=== PATIENT | female | born 2000 | race Caucasian/White ===

== ENCOUNTER 2022-02-02 12:23 | Inpatient (IN) | payer BC ==
[~2022-02-02 12:23] MED LIST: Bupivacaine/Epinephrine 0.25% 30 ML VIAL ONE
[2022-02-02] MEDS ORDERED: Misoprostol 200 MCG TAB PR PRN (12:31)
[2022-02-02] MEDS ORDERED: Carboprost 250 MCG/ML AMP IM PRN (12:31)
[2022-02-02] MEDS ORDERED: HYDROcodone/Acetaminophen 5/325 mg Tablet PO PRN ×2 (12:31)
[2022-02-02] MEDS ORDERED: Lidocaine 1% (PF) 30 ML VIAL SC PRN (12:31)
[2022-02-02] MEDS ORDERED: hydrALAZINE 20 MG/ML VIAL SLOW IVP PRN (12:31)
[2022-02-02] MEDS ORDERED: Diphenoxylate HCl/Atropine Tablet PO PRN (12:31)
[2022-02-02] MEDS ORDERED: Methylergonovine 0.2 MG/ML VIAL IM PRN (12:31)
[2022-02-02] MEDS ORDERED: Promethazine HCl 25 MG/ML VIAL IM PRN (12:31)
[2022-02-02] MEDS ORDERED: Acetaminophen 500 MG TAB PO PRN (12:31)
[2022-02-02] MEDS ORDERED: Ibuprofen 800 MG TAB PO PRN (12:31)
[2022-02-02] MEDS ORDERED: NS w/ Oxytocin 30 units 500 ML IV SCH ×2 (12:45)
[2022-02-02 12:57] VITALS: BMI 34.9
[2022-02-02] MEDS: Misoprostol 100 MCG TAB PO SCH ×4 (14:01→23:34)
[2022-02-02] MEDS: Lactated Ringer's 1,000 ML IV SCH (14:01)
[2022-02-02 15:02] LABS: Hep B Surf Ag Non-Reactive S/CO (NonReactive); Syphilis Antibody Nonreactive (Nonreactive); Syphilis Antibody Index 0.05 S/CO (<1.00 Non-Reactive)
[2022-02-02 15:05] LABS: HBSAg Index 0.15 S/CO (0-0.99)
[2022-02-02 15:12] LABS: Hemoglobin 12.5 g/dL (12.0-15.5); Mean Corpuscular HGB CONC 34.6 g/dL (32.0-36.0); Mean Corpuscular Hemoglobin 29.2 pg (27.0-33.0); Mean Corpuscular Volume 84.3 fl (81.6-98.3); Mean Platelet Volume 10.7 fl (7.4-10.4); Platelet Count 184 10x3/uL (150-450); RBC Distribution Width 13.6 % (11.5-14.5); Red Blood Cell (RBC) Count 4.28 10x6/uL (3.90-5.03); White Blood Cell (WBC) Count 10.3 10x3/uL (3.5-10.5)
[2022-02-02 16:25] LABS: SARS-CoV-2 NAA Rapid Test Not Detected (NotDetected)
[2022-02-02] MEDS: Ondansetron PF 4 MG/2 ML Vial IVP PRN (23:43)
[2022-02-02] MEDS: Butorphanol Tartrate 1 MG/ML VIAL SLOW IVP PRN (23:44)
[2022-02-03] MEDS: Butorphanol Tartrate 1 MG/ML VIAL SLOW IVP PRN ×2 (03:05→07:33)
[2022-02-03] MEDS ORDERED: Dinoprostone 10 MG Suppository VAG SCH (04:45)
[2022-02-03] MEDS: Ondansetron PF 4 MG/2 ML Vial IVP PRN (07:35)
[2022-02-03] MEDS: Lactated Ringer's 1,000 ML IV SCH ×2 (09:30→11:45)
[2022-02-03] MEDS ORDERED: Fentanyl 2 mcg/Bup 0.1% Cadd 100 ML ONE (10:12)
[2022-02-03] MEDS: Fentanyl 2 mcg/Bupivacaine 0.1% Cassette 100 ML EPIDURAL SCH ×2 (10:20→18:56)
[2022-02-03] MEDS ORDERED: Lactated Ringer's 500 ML IV PRN (10:22)
[2022-02-03] MEDS ORDERED: Ondansetron PF 4 MG/2 ML Vial IVP PRN (10:22)
[2022-02-03] MEDS ORDERED: Naloxone HCl 0.4 mg/ml Vial IVP PRN ×2 (10:22)
[2022-02-03] MEDS ORDERED: Promethazine HCl 25 MG/ML VIAL IM PRN (10:22)
[2022-02-03] MEDS ORDERED: ePHEDrine Sulfate 50 MG/10 ML VIAL SLOW IVP PRN (10:22)
[2022-02-03] MEDS ORDERED: diphenhydrAMINE 50 MG/ML VIAL IVP PRN (10:22)
[2022-02-03] MEDS ORDERED: Moisturizing Cream (Eucerin) 113 GM JAR TOP PRN (10:22)
[2022-02-03] MEDS ORDERED: Acetaminophen 325 MG TAB PO PRN (10:22)
[2022-02-03] MEDS ORDERED: Communication Order-Pharmacy FS SCH (10:30)
[2022-02-03] MEDS ORDERED: Lidocaine 1% (PF) 30 ML VIAL ONE (20:54)
[2022-02-04] MEDS ORDERED: Methylergonovine 0.2 MG/ML VIAL IM PRN (00:22)
[2022-02-04] MEDS ORDERED: Benzocaine-Menthol 82.5 ML CAN TOP PRN (00:22)
[2022-02-04] MEDS ORDERED: Lanolin Ointment 7 GM TUBE TOP PRN (00:22)
[2022-02-04] MEDS ORDERED: HYDROcodone/Acetaminophen 5/325 mg Tablet PO PRN ×2 (00:22)
[2022-02-04] MEDS ORDERED: Milk Of Magnesia 30 ML UDCUP PO PRN (00:22)
[2022-02-04] MEDS ORDERED: Ondansetron PF 4 MG/2 ML Vial IVP PRN (00:22)
[2022-02-04] MEDS ORDERED: hydrALAZINE 20 MG/ML VIAL SLOW IVP PRN (00:22)
[2022-02-04] MEDS ORDERED: Misoprostol 200 MCG TAB VAG PRN (00:22)
[2022-02-04] MEDS ORDERED: Bisacodyl 10 MG SUPP PR PRN (00:22)
[2022-02-04] MEDS ORDERED: NS w/ Oxytocin 30 units 500 ML IV PRN (00:22)
[2022-02-04] MEDS: Misoprostol 100 MCG TAB PO SCH ×2 (00:23→00:24)
[2022-02-04] MEDS: Lactated Ringer's 1,000 ML IV SCH (00:24)
[2022-02-04] MEDS ORDERED: Docusate 100 MG CAP PO SCH (00:45)
[2022-02-04] MEDS: Ibuprofen 800 MG TAB PO SCH ×4 (00:56→21:49)
[2022-02-04] MEDS ORDERED: Ibuprofen 800 MG TAB PO SCH (06:00)
[2022-02-04] MEDS: Prenatal Vitamin 1 TAB PO SCH (12:05)
[2022-02-04] MEDS: Docusate 100 MG CAP PO SCH ×2 (12:06→21:49)
[2022-02-04] MEDS: Ferrous Sulfate 325 MG TAB PO SCH ×2 (12:07→14:58)
[2022-02-05] MEDS: Ibuprofen 800 MG TAB PO SCH ×2 (05:30→14:19)
[2022-02-05 07:57] VITALS: BP 101/53; TEMP 98.1
[2022-02-05] MEDS: Ferrous Sulfate 325 MG TAB PO SCH ×2 (08:43→18:16)
[2022-02-05] MEDS: Docusate 100 MG CAP PO SCH (08:44)
[2022-02-05] MEDS: Prenatal Vitamin 1 TAB PO SCH (08:44)
== END 2022-02-05 17:45 | disposition home or self-care (01) | DRG 807 ==
LOC: CSHLD 12:23 → CSHPP 02-04 00:05
PROVIDERS: ADMIT Obstetrics & Gynecology; ATTEND Obstetrics & Gynecology
PROC: 10E0XZZ Delivery of Products of Conception, External Approach (ICD-10-PCS; principal; 2022-02-03)
PROC: 10H07YZ Insertion of Other Device into Products of Conception, Via Natural or Artificial Opening (ICD-10-PCS; 2022-02-03)
PROC: 0UQMXZZ Repair Vulva, External Approach (ICD-10-PCS; 2022-02-03)
PROC: 3E0P7VZ Introduction of Hormone into Female Reproductive, Via Natural or Artificial Opening (ICD-10-PCS; 2022-02-03)
PROC: 3E033VJ Introduction of Other Hormone into Peripheral Vein, Percutaneous Approach (ICD-10-PCS; 2022-02-03)
DX: O42.02 Full-term premature rupture of membranes, onset of labor within 24 hours of rupture (principal); Z37.0 Single live birth; Z3A.40 40 weeks gestation of pregnancy; Z20.822 Contact with and (suspected) exposure to COVID-19; O26.893 Other specified pregnancy related conditions, third trimester; Z67.41 Type O blood, Rh negative; O76 Abnormality in fetal heart rate and rhythm complicating labor and delivery; O70.0 First degree perineal laceration during delivery
CPT/HCPCS: 36415; 51702; 85027; 85461; 86780; 86850; 86900; 86901; 87340; 90384; 96372; 99285; J0595; J2405; J2590; J7120; U0002